=== PATIENT | female | born 1950 | race Caucasian/White ===

== ENCOUNTER → 2016-10-27 | Outpatient (CLI) | payer MEDICARE ==
[~2016-10-27] MED LIST: HARVONI; HYDROCODON-ACE1 EAC9 PO; METHADONE PO; OMEPRAZOLE20 M1 PO; OMEPRAZOLE40 M1 PO; PHENERGAN25 M1 PO; PRILOSEC20 MG PO
--- NOTE | ~2016-10-27 | CT2 ---
[facility] A Service of [facility] / [facility] RADIOLOGY TEXT RESULTS PATIENT: DAILY NATHAN LOCATION: [facility] : 46 UNIT #: [id number] AGE: [address]: VIC SÁNCHEZ APRN SEX: F ORDER DR: [id number] [facility] [address] [place], [place] [address] [id number] O MR#: [id number] Acc #: [id number] NAME: DAILY NATHAN : 1950 SEX: F STUDY DATE/TIME: 10/27/2016 10:30 UNIT: [facility] ROOM: STUDY DESCRIPTION: CT Abd and Pelv W Cont Attending Physician: Vic Sánchez Aprn Referring Physician: Vic Sánchez Aprn Ordering Physician: Vic Sánchez Aprn Primary Care Physician: Itzel Primary Care Physician MEDICAL IMAGING REPORT This report is preliminary unless electronic signature is present EXAM CT abdomen and pelvis with contrast HISTORY Upper abdominal pain and vomiting last week COMPARISON STUDIES 01/18/[address] exam was performed with one or more of the following radiation dose reduction techniques: automatic exposure control, adjustment of mA and/or kV according to patient size, and iterative reconstruction. CT scan of the abdomen and pelvis was performed following the administration of oral and IV contrast. Coronal and sagittal reformatted images were obtained. FINDINGS The lung bases are clear. The liver is unremarkable. There has been a cholecystectomy. The spleen is unremarkable. The kidneys, adrenal glands and pancreas are unremarkable. Pelvis: Diverticulosis. No evidence for diverticulitis. The appendix is normal. Hysterectomy. Bone windows are unremarkable. IMPRESSION There are no CT findings to explain the patient's symptoms. Dictated by... Nikita Edwards M.D. [facility] A Service [facility] RADIOLOGY TEXT RESULTS PATIENT: DAILY NATHAN LOCATION: [facility] : 46 UNIT #: [id number] AGE: [address]: VIC SÁNCHEZ APRN SEX: F ORDER DR: THIS IS AN ELECTRONICALLY VERIFIED REPORT Nikita Edwards M.D. at 10/27/2016 4:47 PM Jaden TD: 10/27/2016 14:02 JOB #: [id number] MEDICAL IMAGING REPORT Page 1 of 1 COPY
[2016-10-27 11:01] LABS: POC - CREATININE 0.79 mg/dL (0.44-1.03); POC - GFR >60.0 mL/min (>60)
== END | disposition home or self-care (01) ==
LOC: CCAT 08:54
PROVIDERS: Nurse Practitioner
DX: R10.11 Right upper quadrant pain (principal); R10.12 Left upper quadrant pain; R63.0 Anorexia; R11.2 Nausea with vomiting, unspecified
CPT/HCPCS: 74177; 82565; Q9967